=== PATIENT | male | born 1995 | race Caucasian/White ===

== ENCOUNTER → 2016-09-24 | Outpatient (CLI) | payer OTHER ==
[~2016-09-24] MED LIST: GADOBUTROL 10 ML VIAL IVP ONE
--- NOTE | 2016-09-24 17:06 | MR ---
MRI Abdomen, Without and With Contrast September 24, 2016 Indication: Primary sclerosing cholangitis. Surveillance. Technique: Axial single shot fast spin echo, axial and coronal 2D T2-weighted FIESTA, axial T1 dual echo, precontrast and postcontrast dynamic T1 fat-suppressed LAVA imaging, and diffusion-weighted raya ging in the axial plane. 8 mL of Gadavist were uneventfully intravenously administered. Comparison: MRI abdomen dated October 03, 2013. Findings: Normal-sized liver has normal morphology. The arterial enhancement is normal with no evide nce of active cholangiohepatitis. No hepatic steatosis or suspicious focal liver lesion. Minimal norah pheral confluent hepatic fibrosis in the medial segment left lobe of the liver just deep to the capsu le is evidenced by delayed subcapsular and wedge-shaped enhancement corresponding to the distribution of dilated ducts on the MRCP sequence. The benign delayed enhancement is similar to the 2014 study y et is slightly more conspicuous due to lack of motion artifact on the current study. The mild stenosis of the common hepatic duct just downstream from the confluence of the right and lef t hepatic ducts is less pronounced than on the prior study. The segmental biliary branches in the med ial segment left lobe and lateral segment left lobe are slightly more dilated than 2014 with no assoc iated abnormal enhancement. The right intrahepatic bile ducts are normal caliber. The spleen is normal size (10 cm craniocaudal). The portal vein is patent. No ascites. The kidneys, pancreas, adrenal glands, and bowel are normal. The abdominal aorta is normal caliber. N o pleural effusion. Bone marrow signal is normal. Impression: 1. No evidence of active cholangiohepatitis or hepatic steatosis. 2. Features consistent with diagnosis of primary sclerosing cholangitis with minimal increased dilati on of segmental branches in the medial and lateral segments left lobe of the liver. 3. Minimal confluent hepatic fibrosis in the lateral segment left lobe of the liver, conforming to th e segment of dilated branches in the left lobe, is unchanged since 2013 and is a common finding in th e setting of primary sclerosing cholangitis.
== END ==
LOC: FIMAGING 13:37
PROVIDERS: ATTEND Internal Medicine Gastroenterology
DX: K83.0 Cholangitis (principal)
CPT/HCPCS: A9585